=== PATIENT | female | born 1945 | race Hispanic/Latino ===

== ENCOUNTER 2022-09-17 06:14 | Day surgery (SDC) | payer OTHER ==
[2022-09-14 11:19] LABS: BASOPHILS % (AUTO) 0.7 % (0.0-5.0); EOSINOPHILS % (AUTO) 2.7 % (0.0-8.0); HEMATOCRIT 43.1 % (36-48); LYMPHOCYTES % (AUTO) 34.4 % (21.0-51.0); MEAN CORPUSCULAR HGB CONC 34.6 g/dL (32.0-36.0); MEAN CORPUSCULAR VOLUME 89.8 fL (79-99); MONOCYTES % (AUTO) 6.4 % (3.0-13.0); NEUTROPHILS % (AUTO) 55.4 % (40.0-77.0); PLATELET COUNT (AUTO) 153 K/uL (130-400); RED CELL DISTRIBUTION WIDTH 12.6 % (11.0-15.5); WHITE BLOOD COUNT (AUTO) 5.5 K/uL (4.8-10.8)
[2022-09-14 11:26] LABS: CREATININE 0.6 mg/dL (0.5-1.5); POTASSIUM 4.6 mmol/L (3.5-5.1)
[2022-09-14 11:29] LABS: APPEARANCE,URINE CLEAR (CLEAR); BILIRUBIN,URINE NEGATIVE (NEGATIVE); COLOR,URINE LIGHT-YELLOW (YELLOW); GLUCOSE, URINE (UA) >=1000 mg/dL (NEGATIVE); KETONES,URINE NEGATIVE (NEGATIVE); LEUKOCYTE ESTERASE ,URINE NEGATIVE Leu/uL (NEGATIVE); NITRATE,URINE NEGATIVE (NEGATIVE); OCCULT BLOOD,URINE NEGATIVE (NEGATIVE); PH,URINE 6.5 (5.0-8.0); PROTEIN,URINE NEGATIVE (NEGATIVE); UROBILINOGEN,URINE 0.2 mg/dL (0.2-1.0)
[2022-09-14 11:34] VITALS: BP 186/74
[2022-09-14 11:53] LABS: INR 1.11 (0.85-1.15)
[2022-09-14 11:54] LABS: PARTIAL THROMBOPLASTIN TIME 28.6 SEC (26.3-35.5)
[2022-09-14 12:25] LABS: BACTERIA,URINE RARE /HPF (None Seen); RBC,URINE 0-1 /HPF (0-1); SQUAMOUS EPITHELIAL CELL,UR RARE /HPF (0-2); WBC,URINE 0-1 /HPF (0-1)
[~2022-09-17] VITALS: Ht 149.9 cm; Wt 68.1 kg
[2022-09-17] VITALS (17 sets, daily range): BP systolic 129–186; BP diastolic 53–74
[2022-09-17] MEDS ORDERED: GENTAMICIN 80 MG/NS 100 ML PB 100 ML IV ONE (07:07)
[2022-09-17] MEDS ORDERED: CEFAZOLIN SODIUM 2 GM VIAL ONE (07:07)
[2022-09-17] MEDS ORDERED: 0.9%NACL 1000ML 1,000 ML IV ONE (07:07)
[2022-09-17] MEDS ORDERED: OLME5TAB29 PO (08:34)
[2022-09-17] MEDS ORDERED: EMPA25TA PO (08:34)
[2022-09-17] MEDS ORDERED: IPRA3AMP24 IH (08:35)
[2022-09-17] MEDS ORDERED: INSU3INS3 SQ (08:35)
[2022-09-17] MEDS ORDERED: ESTROGENS,CONJUGATED 0.625 MG/GM 42.5 GM VAG CRM VG ONE (09:27)
[2022-09-17] MEDS ORDERED: CEFAZOLIN SODIUM 1 GM VIAL ONE (09:27)
[2022-09-17] MEDS ORDERED: KETOROLAC 30MG VIAL (30MG/ML) ONE (09:28)
[2022-09-17] MEDS ORDERED: LIDOCAINE PF 100MG/5ML (2%) SYRINGE 5ML ONE (09:28)
[2022-09-17] MEDS ORDERED: PROPOFOL 10 MG/ML 20ML VIAL IV ONE (09:28)
[2022-09-17] MEDS ORDERED: MIDAZOLAM HCL 1 MG/ML 2ML VIAL ONE (09:28)
[2022-09-17] MEDS ORDERED: ONDANSETRON 4MG INJ ONE ×2 (09:28→11:12)
[2022-09-17] MEDS ORDERED: DEXAMETHASONE SOD PHOSPHATE 10MG/ML 1ML VIAL ONE (09:28)
[2022-09-17] MEDS ORDERED: FENTANYL CITRATE PF 50 MCG/1 ML 2ML VIAL ONE (09:29)
[2022-09-17] MEDS ORDERED: LIDOCAINE 1%-EPI 1:100,000 20 ML VIAL IJ SCH (09:30)
[2022-09-17] MEDS ORDERED: TRAM50TA4 PO (11:36)
[2022-09-17] MEDS ORDERED: CEPH500B PO (11:37)
== END 2022-09-17 12:35 | disposition home or self-care (01) ==
LOC: DAH 06:14
PROVIDERS: ATTEND Urology
DX: N39.46 Mixed incontinence (principal); Z20.822 Contact with and (suspected) exposure to COVID-19; M19.90 Unspecified osteoarthritis, unspecified site; E11.9 Type 2 diabetes mellitus without complications; J44.9 Chronic obstructive pulmonary disease, unspecified; Z90.710 Acquired absence of both cervix and uterus; Z90.49 Acquired absence of other specified parts of digestive tract; Z79.01 Long term (current) use of anticoagulants
CPT/HCPCS: 80048; 85025; 85610; 85730; 87088; 87426; 81001; 36415; 71045; 93005; 51992; 82948 ×2; A6260; A4663; J7030 ×2; A4344; J3010; J0690 ×2; J3490; J1100; J2001; J2250; J2704; J2405 ×2; J1885; J1580; C1771; G0168; A4649; A4930; A4215; A4223; A4222; A4221; A4600